=== PATIENT | male | born 1960 ===

== ENCOUNTER 2018-04-05 01:52 | Emergency (ER) | payer MEDICAID ==
[2018-04-05 05:07] LABS: Hemoglobin 10.5 gm/dl (11.8-15.2); Mean Corpuscular HGB Conc 33 % (32-34); Mean Corpuscular Volume 71 fl (84-94); Platelet Count 370 K/mm3 (140-440); Red Blood Count 4.48 M/mm3 (3.65-5.03); Red Cell Distribution Width 19.7 % (13.2-15.2)
[2018-04-05 05:10] LABS: Mean Corpuscular Hemoglobin 23 pg (28-32)
[2018-04-05 05:10] LABS: Bilirubin,Urine NEG (Negative); Blood,Urine NEG (Negative); Color,Urine Yellow (Yellow); Mucus,Urine FEW /HPF; Protein,Urine <15 mg/dL mg/dL (Negative); Urobilinogen,Urine < 2.0 mg/dL (<2.0)
[2018-04-05 05:41] LABS: Alanine Aminotransferase 23 units/L (7-56); Albumin 4.1 g/dL (3.9-5); BUN/Creatinine Ratio 20; Blood Urea Nitrogen 16 mg/dL (9-20); Calcium 9.5 mg/dL (8.4-10.2); Hemolysis Index 0; Lipase 82 units/L (13-60)
[2018-04-05 06:07] LABS: Band Neutrophils # (Manual) 0.1 K/mm3; Basophils % (Manual) 0 % (0.0-1.8); Eosinophils % (Manual) 0 % (0.0-4.3); Total Cells Counted 100
[2018-04-05 06:08] LABS: Anisocytosis 2+; Ovalocytes 1+; Target Cells Rare
[2018-04-05 06:09] LABS: Schistocytes Rare
[2018-04-05] MEDS ORDERED: NACL 0.9% 1000 ML 1,000 ML IV ONE (12:32)
[2018-04-05] MEDS ORDERED: PEPCID IV ONE (12:32)
[2018-04-05] MEDS ORDERED: SUBLIMAZE IV ONE (12:32)
[2018-04-05] MEDS ORDERED: CARAFATE PO ONE (12:32)
[2018-04-05] MEDS ORDERED: TYLENOL PO ONE (12:32)
--- NOTE | 2018-04-05 12:33 | Emergency Department Report ---
ED Abdominal Pain HPI - General Chief Complaint: Abdominal Pain Stated Complaint: ABD PAIN Time Seen by Provider: 04/05/18 12:17 Source: patient, RN notes reviewed Mode of arrival: Ambulatory Limitations: No Limitations - History of Present Illness Initial Comments: This is a 57-year-old male who is unknown to this provider previously, he has a history of pancreatitis. Presents to the ER with a complaint of constipation. Also thinks that he has pancreatitis. He has epigastric pain and resolved lower abdominal pain. Pain is an achy, and has basically resolved after he had a large bowel movement. He has no headache, neck pain, chest pain, testicular pain, or urinary symptoms at this time. He reports that he was presumptively diagnosed at another hospital pancreatitis, but without CAT scan. MD Complaint: abdominal pain -: Gradual Location: epigastric Migration to: no migration Quality: cramping Consistency: now resolved Improves With: other (History of present illness) Worsens With: other (History of present illness) Associated Symptoms: constipation, other (History of present illness). denies: nausea, vomiting, diarrhea, fever, chills, dysuria, hematemesis, hematochezia, melena, hematuria, anorexia, syncope - Related Data Previous Rx's Medication Instructions Recorded Last Taken Type Acetaminophen [Tylenol Arthritis] 650 mg PO Q6HR PRN #30 tablet.er 04/05/18 Unknown Rx Famotidine [Pepcid] 20 mg PO BID #30 tablet 04/05/18 Unknown Rx Ondansetron [Zofran Odt] 4 mg PO Q8HR PRN #20 tab.rapdis 04/05/18 Unknown Rx Allergies Allergy/AdvReac Type Severity Reaction Status Date / Time No Known Allergies Allergy Unverified 04/05/18 04:13 ED Review of Systems ROS: Stated complaint: ABD PAIN Other details as noted in HPI Comment: All other systems reviewed and negative ED Past Medical Hx - Past Medical History Hx Hypertension: Yes Additional medical history: pancreatitis - Surgical History Past Surgical History?: No - Social History Smoking Status: Current Every Day Smoker Substance Use Type: Alcohol - Medications Home Medications: Home Medications Medication Instructions Recorded Confirmed Last Taken Type Acetaminophen [Tylenol Arthritis] 650 mg PO Q6HR PRN #30 tablet.er 04/05/18 Unknown Rx Famotidine [Pepcid] 20 mg PO BID #30 tablet 04/05/18 Unknown Rx Ondansetron [Zofran Odt] 4 mg PO Q8HR PRN #20 tab.marvindis 04/05/18 Unknown Rx ED Physical Exam - General Limitations: No Limitations General appearance: alert, in no apparent distress - Head Head exam: Present: atraumatic, normocephalic - Eye Eye exam: Present: normal appearance, EOMI. Absent: nystagmus - ENT ENT exam: Present: normal exam, normal orophraynx, mucous membranes moist, normal external ear exam - Neck Neck exam: Present: normal inspection, full ROM - Respiratory Respiratory exam: Present: normal lung sounds bilaterally. Absent: respiratory distress - Cardiovascular Cardiovascular Exam: Present: regular rate, normal rhythm, normal heart sounds. Absent: bradycardia, tachycardia, irregular rhythm, systolic murmur, diastolic murmur, rubs, gallop - GI/Abdominal GI/Abdominal exam: Present: soft, tenderness, normal bowel sounds. Absent: distended, guarding, rebound, rigid, pulsatile mass (there is epigastric tenderness. There is no rebound, guarding or peritoneal signs) - Rectal Rectal exam: Present: deferred - Extremities Exam Extremities exam: Present: normal inspection, full ROM, normal capillary refill. Absent: pedal edema, joint swelling, calf tenderness - Back Exam Back exam: Present: normal inspection, full ROM. Absent: tenderness, CVA tenderness (R), paraspinal tenderness, vertebral tenderness - Neurological Exam Neurological exam: Present: alert, oriented X3, CN II-XII intact, normal gait, other (Extraocular movements intact. Tongue midline. No facial droop. Facial sensation intact to light touch in the V1, V2, V3 distribution bilaterally. 5 and 5 strength in 4 extremities.. Sensation is intact to light touch in 4 extremities.). Absent: motor sensory deficit - Psychiatric Psychiatric exam: Present: normal affect, normal mood - Skin Skin exam: Present: warm, dry, intact, normal color. Absent: rash ED Course Vital Signs 04/05/18 04/05/18 04:07 14:35 Temperature 98.2 F Pulse Rate 70 71 Respiratory 18 16 Rate Blood Pressure 138/90 Blood Pressure 149/90 [Left] O2 Sat by Pulse 97 100 Oximetry - Reevaluation(s) Reevaluation #1: 04/05/18 14:33 Differential diagnosis, including but not limited to: GERD, gastritis, pancreatitis, constipation Assessment and plan: 57-year-old male with abdominal pain, mostly improved, minimally tender, EKG abnormal without proper comparison, not having chest pain. He will be medicated for symptoms, given IV fluids, CT scan of the abdomen and pelvis is pending at this time. Reevaluation #2: 04/05/18 15:20 CAT scan shows chronic pancreatitis. Belly soft. Exam. Tolerating liquid feeds. He can follow-up as an outpatient for this. He will be discharged at this time. ED Medical Decision Making - Lab Data Result diagrams: 04/05/18 04:36 04/05/18 04:36 Vital Signs 04/05/18 04:07 Temperature 98.2 F Pulse Rate 70 Respiratory 18 Rate Blood Pressure 138/90 O2 Sat by Pulse 97 Oximetry Lab Results 04/05/18 04/05/18 04/05/18 Range/Units 04:36 04:36 Unknown WBC 5.3 (4.5-11.0) K/mm3 RBC 4.48 (3.65-5.03) M/mm3 Hgb 10.5 L (11.8-15.2) gm/dl Hct 32.0 L (35.5-45.6) % MCV 71 L (84-94) fl MCH 23 L (28-32) pg MCHC 33 (32-34) % RDW 19.7 H (13.2-15.2) % Plt Count 370 (140-440) K/mm3 Add Manual Diff Complete Total Counted 100 Seg Neuts % (Manual) 72.0 H (40.0-70.0) % Band Neutrophils % 2.0 % Lymphocytes % (Manual) 21.0 (13.4-35.0) % Reactive Lymphs % (Man) 0 % Monocytes % (Manual) 5.0 (0.0-7.3) % Eosinophils % (Manual) 0 (0.0-4.3) % Basophils % (Manual) 0 (0.0-1.8) % Metamyelocytes % 0 % Myelocytes % 0 % Promyelocytes % 0 % Blast Cells % 0 % Nucleated RBC % Not Reportable Seg Neutrophils # Man 3.8 (1.8-7.7) K/mm3 Band Neutrophils # 0.1 K/mm3 Lymphocytes # (Manual) 1.1 L (1.2-5.4) K/mm3 Abs React Lymphs (Man) 0.0 K/mm3 Monocytes # (Manual) 0.3 (0.0-0.8) K/mm3 Eosinophils # (Manual) 0.0 (0.0-0.4) K/mm3 Basophils # (Manual) 0.0 (0.0-0.1) K/mm3 Metamyelocytes # 0.0 K/mm3 Myelocytes # 0.0 K/mm3 Promyelocytes # 0.0 K/mm3 Blast Cells # 0.0 K/mm3 WBC Morphology Not Reportable Hypersegmented Neuts Not Reportable Hyposegmented Neuts Not Reportable Hypogranular Neuts Not Reportable Smudge Cells Not Reportable Toxic Granulation Not Reportable Toxic Vacuolation Not Reportable Dohle Bodies Not Reportable Pelger-Huet Anomaly Not Reportable Cynthia Rods Not Reportable Platelet Estimate Appears normal Clumped Platelets Not Reportable Plt Clumps, EDTA Not Reportable Large Platelets Not Reportable Giant Platelets Not Reportable Platelet Satelliting Not Reportable Plt Morphology Comment Not Reportable RBC Morphology Not Reportable Dimorphic RBCs Not Reportable Polychromasia Not Reportable Hypochromasia Not Reportable Poikilocytosis Not Reportable Anisocytosis 2+ Microcytosis Not Reportable Macrocytosis Not Reportable Spherocytes Not Reportable Pappenheimer Bodies Not Reportable Sickle Cells Not Reportable Target Cells Rare Tear Drop Cells Not Reportable Ovalocytes 1+ Helmet Cells Not Reportable Velazquez-Jewett Bodies Not Reportable Flom Rings Not Reportable Irais Cells Not Reportable Bite Cells Not Reportable Crenated Cell Not Reportable Elliptocytes 1+ Acanthocytes (Spur) Not Reportable Rouleaux Not Reportable Hemoglobin C Crystals Not Reportable Schistocytes Rare Malaria parasites Not Reportable Adal Bodies Not Reportable Hem Pathologist Commnt No Sodium 133 L (137-145) mmol/L Potassium 4.4 (3.6-5.0) mmol/L Chloride 92.9 L (98-107) mmol/L Carbon Dioxide 27 (22-30) mmol/L Anion Gap 18 mmol/L BUN 16 (9-20) mg/dL Creatinine 0.8 (0.8-1.5) mg/dL Estimated GFR > 60 ml/min BUN/Creatinine Ratio 20 % Glucose 109 H (75-100) mg/dL Calcium 9.5 (8.4-10.2) mg/dL Total Bilirubin 0.50 (0.1-1.2) mg/dL AST 27 (5-40) units/L ALT 23 (7-56) units/L Alkaline Phosphatase 82 (35-129) units/L Total Protein 7.9 (6.3-8.2) g/dL Albumin 4.1 (3.9-5) g/dL Albumin/Globulin Ratio 1.1 % Lipase 82 H (13-60) units/L Urine Color Yellow (Yellow) Urine Turbidity Clear (Clear) Urine pH 5.0 (5.0-7.0) Ur Specific Christoval 1.016 (1.003-1.030) Urine Protein <15 mg/dl (Negative) mg/dL Urine Glucose (UA) Neg (Negative) mg/dL Urine Ketones Neg (Negative) mg/dL Urine Blood Neg (Negative) Urine Nitrite Neg (Negative) Urine Bilirubin Neg (Negative) Urine Urobilinogen < 2.0 (<2.0) mg/dL Ur Leukocyte Esterase Neg (Negative) Urine WBC (Auto) 1.0 (0.0-6.0) /HPF Urine RBC (Auto) 2.0 (0.0-6.0) /HPF Urine Mucus Few /HPF - EKG Data -: EKG Interpreted by Me EKG shows normal: sinus rhythm, axis, intervals, QRS complexes, ST-T waves - EKG Data When compared to previous EKG there are: previous EKG unavailable 04/05/18 14:33 Sinus, 74 beats minute, normal axis, normal intervals, low voltage, poor R-wave progression not a stemi Critical care attestation.: If time is entered above; I have spent that time in minutes in the direct care of this critically ill patient, excluding procedure time. ED Disposition Clinical Impression: Chronic pancreatitis Disposition: DC-01 TO HOME OR SELFCARE Is pt being admited?: No Does the pt Need Aspirin: No Condition: Stable Instructions: Pancreatitis (ED) Additional Instructions: Take pain medication, nausea medication as needed/directed. Avoid consumption of alcohol, heavy spicy foods. Follow-up with a primary care doctor or gastroenterology specialist within the next month. Drink 6-8 cups of water a day. Return to the ER right away with new pain, worsened pain, migration of pain, fevers, chills, lethargy, irritability, projectile vomiting and mental status, confusion, inability to tolerate liquids. Referrals: DAVIS LANGLEY MD [Staff Physician] - 3-5 Days ALO WALKER MD [Staff Physician] - 3-5 Days
[2018-04-05 14:36] VITALS: BP 149/90
--- NOTE | 2018-04-05 15:03 | Cat Scan Report ---
FINAL REPORT PROCEDURE: CT ABDOMEN PELVIS W CON TECHNIQUE: Computerized axial tomography of the abdomen and pelvis was performed after the IV injection of iodinated nonionic contrast. HISTORY: abd pain COMPARISON: No prior studies are available for comparison. FINDINGS: Lower Lung white: Mild scattered emphysematous changes are visualized. There is some dependent atelectasis. Lung bases otherwise are unremarkable. Upper Abdomen: There are multiple coarse calcifications seen throughout the entire pancreas. Pancreatic duct is diffusely dilated. Chronic pancreatitis appears to be present. Gallbladder is partially contracted. The ag of the gallbladder are prominent likely due to the contracted state. The intrahepatic ducts are not distended. The liver showed no focal abnormality. The adrenal glands and the spleen are unremarkable. Kidneys, Ureters and Urinary bladder: Kidneys and ureters are unremarkable. Urinary bladder is empty and difficult to characterize. No gross abnormality is seen Retroperitoneum: Atherosclerotic changes are seen in the abdominal aorta and iliac arteries. No aneurysm is visualized. Nonspecific subcentimeter lymph nodes are seen in the retroperitoneum. No pathologically enlarged lymph nodes are identified. Bowel: Mild diverticulosis seen in the left side of the colon without evidence of diverticulitis. There is no evidence of bowel obstruction or ascites. There is no free intraperitoneal gas. The appendix is not clearly visualized. Reproductive organs: Prostate gland does not appear to be significantly enlarged. Other: Small bone island visualized in the left femoral head. No acute bony abnormalities are identified. IMPRESSION: Extensive chronic pancreatitis. Mild emphysematous changes seen in the lung bases. Minimal diverticulosis without evidence of diverticulitis. No other abnormalities are identified.
== END 2018-04-05 15:37 | disposition home or self-care (01) ==
LOC: ED 01:52
DX: K86.1 Other chronic pancreatitis (principal); F17.200 Nicotine dependence, unspecified, uncomplicated
CPT/HCPCS: 36415; 74177; 80053; 81001; 83690; 85007; 85025; 93005; 93010; 96361; 96374; 96375; 99284; J3010; J7030; Q9967